=== PATIENT | female | born 1980 | race Caucasian/White ===

== ENCOUNTER 2024-12-28 06:28 | Day surgery (SDC) | payer OTHER, SELFPAY | END 2024-12-28 12:11 | disposition home or self-care (01) | LOC: GI 06:28 | PROVIDERS: ATTENDING PHYSICIAN Internal Medicine Gastroenterology | DX: D50.9 Iron deficiency anemia, unspecified (principal); R10.13 Epigastric pain; K22.2 Esophageal obstruction | CPT/HCPCS: 43239; 45378; 88305 ==

== ENCOUNTER 2025-02-22 06:16 | Day surgery (SDC) | payer OTHER, SELFPAY ==
[2025-02-22 07:30] VITALS: BMI 22.3
[2025-02-22 07:44] VITALS: BMI 22.3
[2025-02-22 08:05] VITALS: BP 97/59
[2025-02-22 10:54] VITALS: BP 98/53
[2025-02-22 11:00] VITALS: BP 95/57
[2025-02-22 11:15] VITALS: BP 97/50
[2025-02-22 11:30] VITALS: BP 92/53
== END 2025-02-22 11:55 | disposition home or self-care (01) ==
LOC: SDS 06:16
PROVIDERS: ATTENDING PHYSICIAN Internal Medicine Gastroenterology
DX: D13.0 Benign neoplasm of esophagus (principal); K22.89 Other specified disease of esophagus; K31.89 Other diseases of stomach and duodenum
CPT/HCPCS: 43242; 88173; 88305; 88341; 88342